=== PATIENT | female | born 1955 | race Hispanic/Latino ===

== ENCOUNTER 2019-01-14 16:53 | Emergency (ER) | payer MEDICARE, BC ==
[2019-01-14 17:09] VITALS: O2SAT 99
[2019-01-14 17:10] VITALS: TEMP 98.4
--- NOTE | 2019-01-14 17:48 | ED PDOC ---
HPI: General Adult Time Seen by Provider: 01/14/19 17:00 Chief Complaint (Nursing): Dizziness/Lightheaded Chief Complaint (Provider): Dizziness History Per: Patient History/Exam Limitations: no limitations Additional Complaint(s): 63yo female, with history of vertigo, colitis, hypothyroidsm, comes to ER reporting "wooziness" since earlier today. She states she has been ill for the past week with sinus congestion. Otherwise, no headache, weakness, nausea, vomiting, chest pain or shortness of breath. No medications taken for her symptoms. Of note, patient states her blood pressure has been elevated for the past couple weeks but she does not have a diagnosed history of hypertension. PMD: In [place] Past Medical History Reviewed: Historical Data, Nursing Documentation, Vital Signs Vital Signs: Last Vital Signs Temp 98.4 F 01/14/19 17:09 Pulse 77 01/14/19 17:09 Resp 16 01/14/19 17:09 BP 190/94 H 01/14/19 17:09 Pulse Ox 99 01/14/19 17:09 - Medical History PMH: Hypothyroidism, Kidney Stones - Surgical History Surgical History: No Surg Hx - Family History Family History: States: Unknown Family Hx - Immunization History Hx Tetanus Toxoid Vaccination: Yes Hx Influenza Vaccination: Yes Hx Pneumococcal Vaccination: Yes - Home Medications Home Medications: Ambulatory Orders Medication Instructions Recorded ALPRAZolam HALF TABLET [Xanax] 1 tab PO PRN PRN 09/12/15 ALPRAZolam [Xanax] 0.25 mg PO Q8 PRN #0 tab 09/13/15 Aspirin [Ecotrin] 81 mg PO DAILY #0 tabec 09/13/15 Atorvastatin [Lipitor] 40 mg PO HS #0 tab 09/13/15 Mesalamine [Delzicol ] 800 mg PO DAILY #0 capsule. 09/13/15 Amoxicillin/Clavulanate [Augmentin 1 tab PO BID #14 tab 01/14/19 875 MG-125 MG] - Allergies Allergies/Adverse Reactions: Allergies Allergy/AdvReac Type Severity Reaction Status Date / Time Sulfa (Sulfonamide Allergy RASH Verified 01/14/19 17:12 Antibiotics) versed Allergy RASH Uncoded 09/13/15 00:28 Review of Systems ROS Statement: Except As Marked, All Systems Reviewed And Found Negative Constitutional: Negative for: Fever, Chills Cardiovascular: Negative for: Chest Pain, Light Headedness Respiratory: Negative for: Shortness of Breath Neurological: Positive for: Other ("wooziness"). Negative for: Weakness, Numbness, Headache Physical Exam - Reviewed Nursing Documentation Reviewed: Yes Vital Signs Reviewed: Yes - Physical Exam Appears: Positive for: Non-toxic, No Acute Distress Head Exam: Positive for: ATRAUMATIC, NORMAL INSPECTION, NORMOCEPHALIC Skin: Positive for: Normal Color, Warm Eye Exam: Positive for: EOMI, PERRL. Negative for: Nystagmus Neck: Positive for: Normal, Supple Cardiovascular/Chest: Positive for: Regular Rate, Rhythm. Negative for: Tachyc ardia Respiratory: Positive for: Normal Breath Sounds. Negative for: Respiratory Distress Gastrointestinal/Abdominal: Positive for: Soft Back: Positive for: Normal Inspection Extremity: Positive for: Normal ROM. Negative for: Pedal Edema, Deformity Neurological/Psych: Positive for: Awake, Alert, Normal Tone, Symmetric/Intact Strength (5/5), Oriented (x 3), piece maker II-XII. Negative for: Motor/Sensory Deficits - Laboratory Results Result Diagrams: 01/14/19 18:20 01/14/19 18:20 - ECG O2 Sat by Pulse Oximetry: 99 (RA) Pulse Ox Interpretation: Normal Medical Decision Making Medical Decision Mak[place] female with dizziness, sinus congestion Plan: -- labs -- CT head w/o contrast -- meclizine 12.5mg PO 21:28 CT Head FINDINGS: BRAIN No acute intraparenchymal hemorrhage. No mass lesion. No CT evidence for acute territorial infarct. No midline shift or extra-axial collections. VENTRICLES: No hydrocephalus. ORBITS: The orbits are unremarkable. SINUSES AND MASTOIDS: Right sphenoid sinusitis is seen. The mastoid air cells are clear. BONES: No fracture. SOFT TISSUES: Unremarkable. IMPRESSION: Sinusitis. No acute intracranial abnormality. 21:55 Patient informed that blood pressure is elevated and sinusitis noted on the CT, also discussed need for follow up with PMD to determine is hypertension medications are probably needed. Patient agreed. No further treatment necessary in the ED at this time. Stable for discharge. currently bp is improved. Scribe Attestation: Documented by Breanne Darby, acting as a scribe for Renee Mckeon MD Provider Scribe Attestation: All medical record entries made by the Scribe were at my direction and personally dictated by me. I have reviewed the chart and agree that the record accurately reflects my personal performance of the history, physical exam, medical decision making, and the department course for this patient. I have also personally directed, reviewed, and agree with the discharge instructions and disposition. Disposition - Clinical Impression Clinical Impression: Dizziness, Sinusitis, Elevated liver function tests - Patient ED Disposition Is Patient to be Admitted: No Counseled Patient/Family Regarding: Studies Performed, Diagnosis, Need For Followup - Disposition Disposition: Routine/Home Disposition Time: 21:55 Condition: IMPROVED Additional Instructions: follow up with your primary doctor in 1-2 days return to the ED with any worsening or concerning symptoms Prescriptions: Amoxicillin/Clavulanate [Augmentin 875 MG-125 MG] 1 tab PO BID #14 tab Instructions: Sinusitis in Adults, Dizziness, Nonvertigo, (DC) Forms: [employer] (German)
[2019-01-14 18:25] LABS: BASO # 0.1 K/uL (0.0-0.2); BASO % 1.3 % (0.0-2.0); EOS # 0.2 K/uL (0.0-0.7); EOS % 2.4 % (0.0-4.0); HEMOGLOBIN 11.8 g/dL (12.0-16.0); LYMPH # 1.7 K/uL (1.0-4.3); LYMPH % 25.1 % (20.0-40.0); MEAN CELL VOLUME 86.5 fl (81.0-99.0); MEAN CORPUSCULAR HEMOGLOBIN 27.3 pg (27.0-31.0); MEAN CORPUSCULAR HGB CONC 31.5 g/dL (33.0-37.0); MEAN PLATELET VOLUME 7.8 fl (7.2-11.7); MONO # 0.4 K/uL (0.0-0.8); MONO % 6.4 % (0.0-10.0); NEUT # 4.4 K/uL (1.8-7.0); NEUT % 64.8 % (50.0-75.0); NRBC % 0.1 % (0.0-0.0); RBC 4.34 Mil/uL (3.80-5.20); RED CELL DISTRIBUTION WIDTH 13.2 % (11.5-14.5); WHITE BLOOD COUNT 6.7 K/uL (4.8-10.8)
[2019-01-14 18:48] LABS: ALB/GLOB RATIO 1.3 (1.0-2.1); ALBUMIN 4.8 g/dL (3.5-5.0); ALT/SGPT 61 U/L (9-52); AST/SGOT 50 U/L (14-36); BLOOD UREA NITROGEN 15 mg/dl (7-17); CALCIUM 10.8 mg/dL (8.4-10.2); GFR NON-AFRICAN AMERICAN > 60
[2019-01-14 21:43] VITALS: BP 139/83; PULSE 72; RESP 17
--- NOTE | 2019-01-15 08:17 | CT ---
Date of service: 01/14/2019 PROCEDURE: CT HEAD WITHOUT CONTRAST. HISTORY: dizzy COMPARISON: 10/12/2015 TECHNIQUE: Axial computed tomography images were obtained through the head/brain without intravenous contrast. Radiation dose: Total exam DLP = 814.67 mGy-cm. This CT exam was performed using one or more of the following dose reduction techniques: Automated exposure control, adjustment of the mA and/or kV according to patient size, and/or use of iterative reconstruction technique. FINDINGS: HEMORRHAGE: No intracranial hemorrhage. BRAIN: No mass effect or edema. Mild generalized cerebral atrophy present. No gross microvascular ischemic changes. 7 mm left basal ganglionic dilated perivascular space-stable appearing--developmental variant re-noted VENTRICLES: There is a stable asymmetrical posterior right lateral ventricular tip ventricular dilatation is stable in appearance-compatible with developmental variation. No hydrocephalus. CALVARIUM: Unremarkable. PARANASAL SINUSES: Interval air-fluid level in the right maxillary sinus MASTOID AIR CELLS: Unremarkable as visualized. No inflammatory changes. OTHER FINDINGS: None. IMPRESSION: Interval right maxillary acute sinusitis . Otherwise no interval pathology noted. Concordant results (preliminary interpretation) provided by [employer].
== END 2019-01-14 22:05 | disposition home or self-care (01) ==
LOC: H.ER 16:53
DX: R42 Dizziness and giddiness (principal); J01.00 Acute maxillary sinusitis, unspecified; R94.5 Abnormal results of liver function studies; E03.9 Hypothyroidism, unspecified; I10 Essential (primary) hypertension; Z88.2 Allergy status to sulfonamides